=== PATIENT | male | born 1970 | race Two or more races ===

== ENCOUNTER → 2022-02-18 | Outpatient (CLI) | payer MEDICAID | END | disposition home or self-care (01) | LOC: XYW 07:09 | PROVIDERS: ATTEND Internal Medicine | DX: R07.89 Other chest pain (principal); I95.1 Orthostatic hypotension; R91.1 Solitary pulmonary nodule; F17.200 Nicotine dependence, unspecified, uncomplicated; Z82.49 Family history of ischemic heart disease and other diseases of the circulatory system | CPT/HCPCS: 78452; 93017; A9500 ==